=== PATIENT | female | born 1985 | race African-American/Black ===

== ENCOUNTER 2016-06-29 21:44 | Emergency (ER) | payer OTHER, MEDICARE ==
[~2016-06-29] VITALS: Ht 160 cm; Wt 88.5 kg
[~2016-06-29 21:44] MED LIST: AMOXIL500 MG PO; BACTRIM DS 8001 TAB PO; IBUPROFEN800 M1 PO; KEFLEX500 M1 PO; MINOCYCLINE HC100 M1 PO; MOTRIN 800MG T800 MG PO; VALTREX500 MG PO
[2016-06-29 21:53] VITALS: BP 127/80
--- NOTE | 2016-06-29 22:32 | ED ANKLE/FOOT INJURY COMPLAINT ---
History of Present Illness General Chief Complaint: Foot or Ankle Injury Stated Complaint: RIGHT FOOT PAIN Source: patient Exam Limitations: no limitations Vital Signs & Intake/Output Vital Signs & Intake/Output Vital Signs Date Time Temp Pulse Resp B/P B/P Pulse O2 O2 Flow FiO2 Mean Ox Delivery Rate 06/29 2153 97.0 81 20 127/80 97 Room Air Allergies Coded Allergies: apple (Intermediate, N/V 06/29/16) peanut (Intermediate, SWELLING 06/29/16) Reconcile Medications Lidocaine 5 % ADH..PATCH 1 PAT TOP DAILY PAIN (Reported) Lurasidone HCl (Latuda) 20 MG TABLET 1 TAB PO QPM ANXIETY (Reported) Triage Note: TRIAGE: PT TO ER C/C R ANKLE PAIN, ONSET THIS MORNING, CONSTANT SINCE ONSET. NO KNOWN INJURY, STATES "I JUST WOKE UP LIKE THAT". HAS NOT TRIED ANY OTC PAIN RELIEVERS. MEDICATED WITH TYLENOL AT TRIAGE PER PROTOCOL. Triage Nurses Notes Reviewed? yes Occurred: just prior to arrival Duration: day(s):, constant, continues in ED Timing: recent history Severity: moderate, severe Pain/Injury Location: Right: Foot. No Modifying Factors: none : Yes Patient currently breastfeeds: No HPI: 31-year-old female comes into the emergency room for further evaluation of right ankle pain. Patient reports that the symptoms of been going on for the past day. She is a approximately 5 months . She woke up with right ankle pain today. She denies any trauma or injury. Denies any fever chills vomiting. Denies any abdominal pain and vaginal bleeding or leakage of fluid. Denies any other associated symptoms. (ASHTYN YAN) Past History Travel History Traveled to [place] past 21 day No Medical History Any Pertinent Medical History? see below for history Neurological: NONE EENT: NONE Cardiovascular: NONE Respiratory: NONE Gastrointestinal: NONE Hepatic: NONE Renal: NONE Musculoskeletal: NONE Psychiatric: NONE Endocrine: NONE Blood Disorders: NONE Cancer(s): NONE MANAGER ASSESSMENT/Reproductive: NONE Other Medical Hx: hidradinitis suppurativa History of MRSA: No Surgical History Surgical History: non-contributory Psychosocial History What is your primary language Irish Tobacco Use: Quit >30 days ago ETOH Use: occasional use Illicit Drug Use: denies illicit drug use Family History Hx Contributory? No (ASHTYN YAN) Review of Systems Review of Systems Constitutional: Reports: no symptoms. EENTM: Reports: no symptoms. Respiratory: Reports: no symptoms. Cardiovascular: Reports: no symptoms. GI: Reports: no symptoms. Genitourinary: Reports: no symptoms. Musculoskeletal: Reports: see HPI. Skin: Reports: no symptoms. Neurological/Psychological: Reports: no symptoms. Hematologic/Endocrine: Reports: no symptoms. Immunologic/Allergic: Reports: no symptoms. All Other Systems: Reviewed and Negative (ASHTYN YAN) Physical Exam Physical Exam General Appearance: well developed/nourished, mild distress Head: atraumatic Eyes: Bilateral: normal appearance. Ears, Nose, Throat: normal ENT inspection, hearing grossly normal Neck: normal inspection Cardiovascular/Respiratory: no respiratory distress Back: normal inspection Leg/Knee/Thigh Left: normal inspection Ankle Right: soft tissue tenderness, swelling, limited range of motion Neuro/Vascular: normal motor function, normal sensation Tendon: normal tendon function Psychiatric: awake, alert, oriented x 3 Skin: intact, normal color, warm/dry (ASHTYN YAN) Progress Differential Diagnosis: septic arthritis, gout, fracture, dislocation, sprain, contusion Plan of Care: Orders Procedure Date/time Status Durable Medical Equipment 06/30 2231 Active Comments: 06/29/2016 11:17:36 PM Due to the fact that the patient is and she has no known injury patient was told that there is a low suspicion for any fracture. Patient was told that she should follow-up with orthopedic doctor provided. At this time no x-ray will be performed. Patient will be treated as a fracture. Patient clinically looks well otherwise. Case discussed with Dr. Alejandre. (ASHTYN YAN) Departure Departure Disposition: HOME OR SELF CARE Condition: Stable Clinical Impression Primary Impression: Right ankle pain Referrals: JESSICA REARDON MD (PCP/Family) GISEL BARROW MD Additional Instructions: Ice. Rest. Motrin for pain. Elevation. Follow-up with orthopedic doctor provided . Sprains can last anywhere from days to weeks. No high impact running or jumping if you have an ankle sprain or any type of lower extremity sprain. Stay nonweightbearing at the moment until he see the orthopedic doctor Return to normal activity only after symptoms have resolved. Departure Forms: Customer Survey General Discharge Information (ASHTYN YAN) PA/STEAMBOAT INSPECTOR Co-Sign Statement Statement: ED Attending supervision documentation- [] I saw and evaluated the patient. I have also reviewed all the pertinent lab results and diagnostic results. I agree with the findings and the plan of care as documented in the PA's/STEAMBOAT INSPECTOR's documentation. [X] I have reviewed the ED Record and agree with the PA's/STEAMBOAT INSPECTOR's documentation. [] Additions or exceptions (if any) to the PAs/STEAMBOAT INSPECTOR's note and plan are summarized below: [] (HAJA ROMAN,CURLY Mckeon) Procedures Splinting Location: right ankle Manual Alignment Performed: No Pre-Made Type: pneumatic boot Splint Applied By: splint applied by me Pre-Proc Neuro Vasc Exam: normal Post-Proc Neuro Vasc Exam: normal (ASHTYN YAN)
[2016-06-29] MEDS ORDERED: LIDOCAINE1 EACH TOP (23:02)
[2016-06-29] MEDS ORDERED: LATUDA20 M1 PO (23:02)
== END 2016-06-29 23:04 ==
LOC: ERH 21:44
DX: M25.571 Pain in right ankle and joints of right foot (principal)
CPT/HCPCS: 99282